=== PATIENT | male | born 1980 | race Caucasian/White ===

== ENCOUNTER 2017-05-26 12:14 | Emergency (ER) | payer BC, OTHER ==
[~2017-05-26] VITALS: Ht 188 cm; Wt 125.0 kg
[2017-05-26] MEDS ORDERED: IBUP-1114 PO (12:27)
[2017-05-26] MEDS ORDERED: MORPHINE 4 MG/ML 1ML SYRINGE IV ONE (13:15)
[2017-05-26] MEDS ORDERED: ONDANSETRON 4MG/2ML VIAL (J2405) IV ONE (13:15)
[2017-05-26] MEDS ORDERED: NS 1,000 ML IV ONE (13:15)
[2017-05-26 13:34] LABS: BASO # 0.1 K/mm3 (0.0-0.2); EOS # 0.1 K/mm3 (0.0-0.50); EOS % 2.2 % (0.0-3.0); LARGE UNSTAINED CELL # 0.1 K/mm3 (0.0-0.4); LARGE UNSTAINED CELL % 1.8 % (0.0-4.0); LYMPH # 1.4 K/mm3 (1.5-4.5); LYMPH % 18.7 % (24.0-44.0); MEAN CORPUSCULAR HEMOGLOBIN 29.6 pg (27.0-33.0); MEAN CORPUSCULAR VOLUME 84.5 fl (80.0-96.0); MONO # 0.9 K/mm3 (0.0-0.8); MONO % 13.2 % (0.0-5.0); NEUTROPHILS # 4.2 K/mm3 (1.8-7.7); NEUTROPHILS % 63.1 % (36.0-66.0); PLATELET COUNT, AUTOMATED 242 k/mm3 (150-450); RED CELL DISTRIBUTION WIDTH 13.1 % (11.5-14.5); WHITE BLOOD COUNT 6.7 K/mm3 (4.0-10.0)
[2017-05-26 13:52] LABS: ANION GAP 10 MEQ/L (8-16); BLOOD UREA NITROGEN 13 MG/DL (7-18); CALCIUM LEVEL 8.1 MG/DL (8.5-10.1); CARBON DIOXIDE LEVEL 26 MEQ/L (21-32); CHLORIDE LEVEL 106 MEQ/L (98-107); CREATININE FOR GFR 0.92 MG/DL (0.70-1.30); GLOMERULAR FILTRATION RATE > 60.0 (>60); GLUCOSE, FASTING 91 MG/DL (70-105); POTASSIUM SERUM 3.8 MEQ/L (3.5-5.1); SODIUM LEVEL 142 MEQ/L (136-145)
[2017-05-26] MEDS ORDERED: CIPR-249 PO (15:21)
[2017-05-26] MEDS ORDERED: IBUP-1022 PO (15:23)
[2017-05-26] MEDS ORDERED: CIPROFLOXACIN 500 MG TAB PO ONE (15:30)
[2017-05-26] MEDS ORDERED: IBUPROFEN 800 MG TAB PO ONE (15:30)
[2017-05-26 15:33] VITALS: BP 140/85
--- NOTE | 2017-05-26 15:51 | SMCUROLCON ---
Urology Consultation General Date of Consultation 05/26/17 Reason For Consultation This patient is seen for right epididymo-orchitis. Cipro, NSAID prn. dc home. f/ u Urology 1 week. Full consultation dictated. History of Present Illness The patient is a -year-old with a past medical history for . Allergies Allergies: Coded Allergies: No Known Allergies (Verified , 05/26/17) Vital Signs/I&O Vital Signs Date Time Temp Pulse Resp B/P (MAP) Pulse Ox O2 Delivery O2 Flow Rate FiO2 05/26/17 15:33 98.3 70 16 140/85 (103) 100 05/26/17 13:38 Room Air Laboratory Data 24H Labs Laboratory Tests 2 05/26/17 13:07: White Blood Count 6.7, Red Blood Count 5.02, Hemoglobin 14.8, Hematocrit 42.4, Mean Corpuscular Volume 84.5, Mean Corpuscular Hemoglobin 29.6, Mean Corpuscular Hemoglobin Concent 35.0, Red Cell Distribution Width 13.1, Platelet Count 242, Neutrophils (%) (Auto) 63.1, Lymphocytes (%) (Auto) 18.7L, Monocytes (%) (Auto) 13.2H, Eosinophils (%) (Auto) 2.2, Basophils (%) (Auto) 1.0, Neutrophils # (Auto) 4.2, Lymphocytes # (Auto) 1.4L, Monocytes # (Auto) 0.9H, Eosinophils # (Auto) 0.1, Basophils # (Auto) 0.1, Large Unclassified Cells % 1.8 , Large Unclassified Cells # 0.1, Anion Gap 10, Glomerular Filtration Rate > 60.0, Blood Urea Nitrogen 13, Creatinine 0.92, Sodium Level 142, Potassium Level 3.8, Chloride Level 106, Carbon Dioxide Level 26, Calcium Level 8.1L 05/26/17 14:57: Urine Appearance CLEAR, Urine Color YELLOW, Urine pH 5.0, Urine Specific [place] 1.019, Urine Protein NEGATIVE, Urine Glucose (UA) NEGATIVE, Urine Ketones NEGATIVE, Urine Urobilinogen 0.2, Urine Bilirubin NEGATIVE, Urine Leukocyte Esterase NEGATIVE, Urine Blood NEGATIVE, Urine Nitrite NEGATIVE, Urine WBC (Auto) 1, Urine RBC (Auto) 3, Urine Hyaline Casts (Auto) 0, Urine Bacteria (Auto) NEGATIVE, Urine Squamous Epithelial Cells 0, Urine Mucus (Auto) SMALL, Urine Sperm (Auto) CBC/BMP Laboratory Tests 05/26/17 13:07 Red Blood Count 5.02, Mean Corpuscular Volume 84.5, Mean Corpuscular Hemoglobin 29.6, Mean Corpuscular Hemoglobin Concent 35.0, Red Cell Distribution Width 13.1 , Neutrophils (%) (Auto) 63.1, Lymphocytes (%) (Auto) 18.7 L, Monocytes (%) ( Auto) 13.2 H, Eosinophils (%) (Auto) 2.2, Basophils (%) (Auto) 1.0, Neutrophils # (Auto) 4.2, Lymphocytes # (Auto) 1.4 L, Monocytes # (Auto) 0.9 H, Eosinophils # (Auto) 0.1, Basophils # (Auto) 0.1, Calcium Level 8.1 L Microbiology Microbiology 05/26/17 Urine Culture, Received Pending ZOE FLORES MD May 26, 2017 15:51
--- NOTE | 2017-05-26 16:02 | CR ---
DATE OF CONSULTATION: 05/26/2017 REQUESTING PHYSICIAN: Dr. Harsh Farah. REASON FOR CONSULTATION: This 36-year-old male was evaluated in consultation as requested by Dr. Farah on 05/26/2017, for a one-day history of right scrotal discomfort and mild swelling. This is his first episode. This was precipitated by lawn mowing. Prior to presentation, there is no history of voiding symptoms, gross hematuria, urinary tract infection, urolithiasis, flank pain, sexually transmitted diseases, urethral discharge or genitourinary trauma. PAST MEDICAL HISTORY: Significant for Crohn's disease. REVIEW OF SYSTEMS: Negative for diabetes, hypertension, cardiac or pulmonary pathology, thyroid problems, headaches, epilepsy, cerebrovascular accident (CVA), glaucoma, peptic ulcer disease, urolithiasis, cholelithiasis or blood-borne diseases. MEDICATIONS: He is on no medications. ALLERGIES: He has no allergies to medications. SOCIAL HISTORY: He is and has two children. He is a nonsmoker who consumes alcohol occasionally. FAMILY HISTORY: Significant for duodenal cancer on the paternal side. PHYSICAL EXAMINATION: General examination revealed a comfortable individual. His heart rate was 68, respiratory rate 18, blood pressure 141/85, and temperature was 97.8 degrees Fahrenheit. Palpation of the head and neck failed to reveal the presence of lymphadenopathy. Auscultation of chest is clear with normal heart sounds. Examination of back and abdomen was benign. Examination of the external genitalia revealed a circumcised penis with intrascrotal testes bilaterally. The vas deferens, epididymides, scrotum and perineum were normal. No swelling was noted. Mild tenderness of the right epididymis was noted. A cremasteric reflex was present bilaterally. Normal testicular lie was noted also bilaterally. LABORATORY DATA: A urinalysis (05/26/2017) is pending at the time of this dictation. Serum hematologic and biochemical indices determination (05/26/2017) demonstrated a hemoglobin of 14.8, leukocyte count 6.7 and creatinine of 0.92. Scrotal ultrasonography with Doppler (05/26/2017) demonstrated bilateral central testis blood flow, with increased blood flow on the right, likely reflective of right epididymo-orchitis. A left epididymal cyst and a small bilateral varicoceles were noted. ASSESSMENT: 1. Right epididymo-orchitis. 2. History of Crohn's disease. PLAN: The above findings were discussed with the patient, nursing staff, and emergentologist. A urine specimen for culture and sensitivity was obtained. He may be discharged home with ciprofloxacin 500 mg by mouth twice a day for 7-10 days and ibuprofen as needed. He will followup with urology in one week for followup evaluation. Should you require additional information, please do not hesitate to contact me. Thanking you for the confidence of your referral.
--- NOTE | 2017-05-27 08:02 | REP ---
SCROTAL ULTRASOUND: HISTORY: Pain. The testes are normal in echogenicity. The right testis measure 4.7 x 2.3 x 2.9 cm. The left testis measures 4.7 x 2.2 x 3 cm. The right epididymis measures 8.7 mm. The left epididymis measures 9.7 mm. A small 2.6 mm right varicocele is present. A small 2.9 mm left varicocele is present. A 4.4 mm left epididymal cyst is present. There is increased blood flow to the right testicle likely represent orchitis. There is no torsion. IMPRESSION: 1. There is no torsion. 2. There is increased blood flow to the right testicle likely representing orchitis. Signed by Matteo Panda MD 05/27/2017 08:19 A
== END 2017-05-26 15:38 | disposition home or self-care (01) ==
LOC: M ED 12:14
DX: N45.2 Orchitis (principal); R10.9 Unspecified abdominal pain; K50.919 Crohn's disease, unspecified, with unspecified complications; Z80.0 Family history of malignant neoplasm of digestive organs
CPT/HCPCS: 36415; 76870; 80048; 81001; 85025; 87088; 87186; 87491; 87591; 93976; 96361; 96374; 96375; 99283; J2405